=== PATIENT | male | born 1950 | race Two or more races ===

== ENCOUNTER 2016-05-14 13:34 | Inpatient (IN) | payer BC ==
[~2016-05-14] VITALS: Ht 180.3 cm; Wt 99.8 kg
[2016-05-14] MEDS ORDERED: IV NS 0.9% 1,000 ML BAG IV ONE (14:30)
[2016-05-14] MEDS ORDERED: ONDANSETRON HCL/PF 4 MG/2 ML VIAL IVP ONE (14:30)
[2016-05-14] MEDS ORDERED: ONDANSETRON HCL/PF 4 MG/2 ML VIAL ONE (14:44)
[2016-05-14] MEDS ORDERED: IV NS 0.9% 1,000 ML ONE ×3 (14:44→22:49)
[2016-05-14] MEDS ORDERED: IV SET PRIMARY 1 EA INFUS.SET MC ONE ×2 (14:44→15:45)
[2016-05-14 14:49] LABS: KETONES,URINE NEGATIVE (NEGATIVE); LEUKOCYTE ESTERASE ,URINE NEGATIVE (NEGATIVE); PH,URINE 6.5 (5.0-8.0)
[2016-05-14 14:52] LABS: ADD UA MICROSCOPIC YES
[2016-05-14] MEDS ORDERED: LORAZEPAM INJ 2 MG/ML VIAL ONE (14:52)
[2016-05-14 14:57] LABS: ADD URINE CULTURE NO; RBC,URINE 0-2 /HPF (0-2); WBC,URINE 0-2 /HPF (0-3)
[2016-05-14] MEDS ORDERED: LORAZEPAM INJ 2 MG/ML VIAL IV ONE (15:00)
[2016-05-14 15:12] LABS: CALCIUM, SERUM 8.9 mg/dL (8.5-10.1); CREATININE 0.9 mg/dL (0.6-1.3); POTASSIUM 3.2 mmol/L (3.5-5.1)
[2016-05-14 15:18] LABS: ALBUMIN 3.7 g/dL (3.4-5.0); BILIRUBIN,DIRECT 0.3 mg/dL (0.0-0.2); BILIRUBIN,TOTAL 1.3 mg/dL (0.2-1.0); INR 1.05 (0.87-1.13); PROTHROMBIN TIME 11.4 SECS (9.5-12.7); TOTAL PROTEIN, SERUM 7.1 g/dL (6.4-8.2)
[2016-05-14 15:20] LABS: TROPONIN I 0.023 ng/mL (0.00-0.056)
[2016-05-14 15:22] LABS: BASOPHILS % (AUTO) 0.3 % (0.0-2.0); DIFF TOTAL % 100 %; EOSINOPHILS % (AUTO) 0.3 % (0.0-6.0); HEMATOCRIT 38 % (39-51); HEMOGLOBIN 13.2 g/dL (13.5-17.5); LYMPHOCYTES % (AUTO) 17.1 % (20.0-44.0); MEAN CORPUSCULAR HEMOGLOBIN 32 PG (26.0-33.0); MEAN CORPUSCULAR HGB CONC 34 g/dl (31.0-36.0); MEAN CORPUSCULAR VOLUME 93 fL (80-96); MONOCYTES # (AUTO) 0.5 /CMM (0.1-1.30); MONOCYTES % (AUTO) 8.2 % (2.0-12.0); NEUTROPHILS # (AUTO) 4.5 /CMM (1.8-8.9); NEUTROPHILS % (AUTO) 74.1 % (43.0-81.0); PLATELET COUNT (AUTO) 341 /CMM (150-450); RED BLOOD CELL COUNT(AUTO) 4.13 MIL/uL (4.5-6.0)
[2016-05-14 15:23] LABS: LACTIC ACID 1.9 mmol/L (0.4-2.0)
[2016-05-14 15:37] LABS: CANNABINOID, URINE NEGATIVE (NEGATIVE); PHENCYCLIDINE SCREEN,URINE NEGATIVE (NEGATIVE)
[2016-05-14] MEDS ORDERED: IV SET PRIMARY PUMP SET 1 EA INFUS.SET MC ONE ×6 (15:45→22:51)
[2016-05-14] MEDS ORDERED: POTASSIUM CL. PREMIX PERIPHER. 200 ML ONE (15:45)
[2016-05-14] MEDS ORDERED: IV NS 0.9% 1,000 ML IV ONE (16:00)
[2016-05-14] MEDS: Thiamine 100 MG in IV D5W 50 ML IV SCH (16:10)
[2016-05-14] MEDS: POTASSIUM CL. PREMIX PERIPHER. 50 ML IV SCH ×3 (16:15→18:45)
[2016-05-14] MEDS ORDERED: Magnesium 1 GM/2 ML VIAL IV ONE (16:30)
[2016-05-14] MEDS ORDERED: Magnesium 1GM/D5W 100ML PREMIX 200 ML IV ONE (16:38)
[2016-05-14 18:00] VITALS: BP 171/116
[2016-05-14] MEDS: LORAZEPAM INJ 2 MG/ML VIAL IV PRN (18:09)
[2016-05-14] MEDS ORDERED: IV NS 0.9% 250 ML IV ONE (18:33)
[2016-05-14 19:00] VITALS: BP 158/107
[2016-05-14] MEDS ORDERED: OLANZAPINE 10 MG VIAL IM ONE (19:30)
[2016-05-14 20:00] VITALS: BP 136/84
[2016-05-14] MEDS ORDERED: ONDANSETRON HCL/PF 4 MG/2 ML VIAL IVP PRN (20:00)
[2016-05-14] MEDS ORDERED: ZOLPIDEM TARTRATE 5 MG TABLET PO PRN (20:00)
[2016-05-14] MEDS ORDERED: MAGNESIUM HYDROXIDE 30 ML UDC PO PRN (20:00)
[2016-05-14] MEDS ORDERED: Z GUARD REMEDY 2 OZ OINT TP PRN (20:00)
[2016-05-14] MEDS ORDERED: MAG HYDROX/AL HYDROX/SIMETH 30 ML UDC PO PRN (20:00)
[2016-05-14] MEDS ORDERED: IV NS 0.9% 1,000 ML IV PRN (23:00)
[2016-05-15] VITALS: BP 136/91
[2016-05-15 00:45] LABS: CALCIUM, SERUM 8.5 mg/dL (8.5-10.1); POTASSIUM 3.5 mmol/L (3.5-5.1)
[2016-05-15 04:00] VITALS: BP 138/94
[2016-05-15 08:00] VITALS: BP 138/77
[2016-05-15 12:00] LABS: BASOPHILS % (AUTO) 0.2 % (0.0-2.0); DIFF TOTAL % 100 %; EOSINOPHILS % (AUTO) 0.1 % (0.0-6.0); HEMATOCRIT 40 % (39-51); HEMOGLOBIN 13.6 g/dL (13.5-17.5); LYMPHOCYTES # (AUTO) 1.6 /CMM (0.8-4.8); LYMPHOCYTES % (AUTO) 16.5 % (20.0-44.0); MEAN CORPUSCULAR HEMOGLOBIN 32 PG (26.0-33.0); MEAN CORPUSCULAR HGB CONC 34 g/dl (31.0-36.0); MEAN CORPUSCULAR VOLUME 94 fL (80-96); MONOCYTES % (AUTO) 10.8 % (2.0-12.0); NEUTROPHILS # (AUTO) 6.9 /CMM (1.8-8.9); NEUTROPHILS % (AUTO) 72.4 % (43.0-81.0); PLATELET COUNT (AUTO) 367 /CMM (150-450); WHITE BLOOD COUNT (AUTO) 9.6 K/uL (4.3-11.0)
[2016-05-15 12:29] LABS: CALCIUM, SERUM 8.7 mg/dL (8.5-10.1); PHOSPHORUS 1.7 mg/dL (2.5-4.9)
[2016-05-15] MEDS ORDERED: SECONDARY IV SET 1 EA INFUS.SET MC ONE (14:54)
[2016-05-15] MEDS: Thiamine 100 MG in IV D5W 50 ML IV SCH (14:54)
[2016-05-15 16:00] VITALS: BP 109/70
[2016-05-15] MEDS ORDERED: POTASSIUM CL. PREMIX PERIPHER. 50 ML IV SCH (16:00)
[2016-05-15] MEDS ORDERED: K PHOS NEUTRAL 250 MG TABLET PO SCH (16:00)
[2016-05-15 16:04] VITALS: BP 109/70
[2016-05-15] MEDS ORDERED: IV SET PRIMARY PUMP SET 1 EA INFUS.SET MC ONE (16:15)
[2016-05-15] MEDS: POTASSIUM CHLORIDE 20 MEQ TAB.PRT.SR PO SCH ×3 (16:56→19:07)
[2016-05-15] MEDS: ACETAMINOPHEN 325 MG TABLET PO PRN (17:02)
[2016-05-15 20:00] VITALS: BP 133/84
[2016-05-16 08:00] VITALS: BP 130/76
[2016-05-16 10:35] VITALS: BP 130/76
[2016-05-16] MEDS ORDERED: NEUTRA PHOS 1 POWD.PACKET PO ONE (12:00)
[2016-05-16 16:00] VITALS: BP 163/85
[2016-05-16] MEDS: Thiamine 100 MG in IV D5W 50 ML IV SCH (17:50)
[2016-05-16 22:00] VITALS: BP 133/68
[2016-05-17] MEDS: Thiamine 100 MG in IV D5W 50 ML IV SCH (14:51)
[2016-05-17] MEDS ORDERED: IV SET PRIMARY PUMP SET 1 EA INFUS.SET MC ONE (15:02)
[2016-05-17 15:20] VITALS: BP 160/100
[2016-05-17] MEDS: QUETIAPINE FUMARATE 25 MG TABLET PO PRN (17:49)
[2016-05-17] MEDS ORDERED: POTASSIUM CHLORIDE 20 MEQ TAB.PRT.SR PO SCH (19:00)
[2016-05-17] MEDS: LORAZEPAM INJ 2 MG/ML VIAL IV PRN (21:34)
[2016-05-17] MEDS ORDERED: HALOPERIDOL LACTATE INJ 5 MG/ML VIAL ONE (23:08)
[2016-05-17] MEDS ORDERED: LORAZEPAM INJ 2 MG/ML VIAL IM STA (23:08)
[2016-05-17] MEDS ORDERED: HALOPERIDOL LACTATE INJ 5 MG/ML VIAL IM ONE (23:30)
[2016-05-18 09:19] LABS: CALCIUM, SERUM 8.9 mg/dL (8.5-10.1); CREATININE 0.9 mg/dL (0.6-1.3); PHOSPHORUS 4.2 mg/dL (2.5-4.9); POTASSIUM 3.5 mmol/L (3.5-5.1)
[2016-05-18] MEDS: THIAMINE HCL 100 MG TABLET PO SCH (09:36)
[2016-05-18] MEDS: QUETIAPINE FUMARATE 25 MG TABLET PO PRN (09:36)
[2016-05-18 09:38] VITALS: BP 149/99
[2016-05-18 16:00] VITALS: BP 163/80
[2016-05-18 20:00] VITALS: BP 174/97
[2016-05-18] MEDS: DIVALPROEX SODIUM 500 MG TABLET.DR PO SCH (20:57)
[2016-05-18] MEDS: HALOPERIDOL LACTATE INJ 5 MG/ML VIAL IM PRN (21:12)
[2016-05-18] MEDS: LORAZEPAM INJ 2 MG/ML VIAL IM PRN ×2 (21:14→21:19)
[2016-05-19] MEDS: THIAMINE HCL 100 MG TABLET PO SCH (09:31)
[2016-05-19] MEDS: DIVALPROEX SODIUM 500 MG TABLET.DR PO SCH ×2 (09:31→20:38)
[2016-05-19] MEDS: ACETAMINOPHEN 325 MG TABLET PO PRN (09:32)
[2016-05-19 09:56] VITALS: BP 152/78
[2016-05-19 16:22] VITALS: BP 157/93
[2016-05-19] MEDS: LORAZEPAM INJ 2 MG/ML VIAL IM PRN (20:39)
[2016-05-19 22:00] VITALS: BP 145/106
[2016-05-19] MEDS: HALOPERIDOL LACTATE INJ 5 MG/ML VIAL IM PRN (22:12)
[2016-05-20 07:47] VITALS: BP 157/92
[2016-05-20] MEDS: THIAMINE HCL 100 MG TABLET PO SCH (08:00)
[2016-05-20] MEDS: DIVALPROEX SODIUM 500 MG TABLET.DR PO SCH ×2 (08:01→20:40)
[2016-05-20 09:58] VITALS: BP 157/92
[2016-05-20 15:51] VITALS: BP 145/77
[2016-05-20 17:58] VITALS: BP 145/77
[2016-05-20 20:00] VITALS: BP 140/71
[2016-05-21 08:00] VITALS: BP 137/85
[2016-05-21] MEDS: THIAMINE HCL 100 MG TABLET PO SCH (08:14)
[2016-05-21] MEDS: DIVALPROEX SODIUM 500 MG TABLET.DR PO SCH ×2 (08:14→20:01)
[2016-05-21] MEDS ORDERED: QUETIAPINE FUMARATE 25 MG TABLET PO SCH (09:30)
[2016-05-21 16:00] VITALS: BP 159/101
[2016-05-21] MEDS: LORAZEPAM INJ 2 MG/ML VIAL IM PRN (19:59)
[2016-05-21 20:00] VITALS: BP 149/96
[2016-05-22] MEDS: THIAMINE HCL 100 MG TABLET PO SCH (07:54)
[2016-05-22] MEDS: DIVALPROEX SODIUM 500 MG TABLET.DR PO SCH (07:54)
[2016-05-22 09:25] VITALS: BP 145/79
== END 2016-05-22 15:30 | disposition home health service (06) | DRG 917 ==
LOC: ER 13:35 → TELE 17:16 → MED 05-15 11:03
PROVIDERS: ADMIT Family Medicine; ATTEND Family Medicine
DX: T50.994A Poisoning by other drugs, medicaments and biological substances, undetermined, initial encounter (principal); G92 Toxic encephalopathy; E87.1 Hypo-osmolality and hyponatremia; F10.239 Alcohol dependence with withdrawal, unspecified; F19.239 Other psychoactive substance dependence with withdrawal, unspecified; E87.6 Hypokalemia; E83.42 Hypomagnesemia; F41.9 Anxiety disorder, unspecified; E83.39 Other disorders of phosphorus metabolism; Z87.891 Personal history of nicotine dependence; Y90.9 Presence of alcohol in blood, level not specified; Y92.9 Unspecified place or not applicable; R01.1 Cardiac murmur, unspecified
CPT/HCPCS: 36415; 70450-TC; 71010-TC; 80048-TC; 80061-TC; 80076-TC; 80164-TC; 81000-TC; 83605-TC; 83735-TC; 84100-TC; 84484-TC; 85025-TC; 85730-TC; 87040-TC; 87081-TC; 87086-TC; 92521; 94799-TC; 95819-TC; 97001-TC; 97003-TC; 97116-TC; 97530-TC; A4606; G0434; J1630; J2060; J2405; J3411; J3480; J3490; J7030; J7060; Z7610